=== PATIENT | male | born 1990 ===

== ENCOUNTER 2017-02-15 10:32 | Emergency (ER) | payer MEDICAID ==
[2017-02-15 10:51] VITALS: BP 115/70; TEMP 98.3
[2017-02-15 11:33] VITALS: PULSE 88; RESP 17; O2SAT 98
--- NOTE | 2017-02-15 15:17 | C.PDOC ---
History Of Present Illness The patient, a 26 y/o male whose PMHx includes Schizophrenia, presents to the ED for evaluation of diffuse body itching which began around 2 months ago. Patient states he has been taking Benadryl with little relief. Patient states he was evaluated by a doctor in [place] around 1.5 months ago for the same complaint and was prescribed Benadryl. Otherwise, patient denies fever, chills, shortness of breath, throat swelling sensation. Chief Complaint (Nursing): Abnormal Skin Integrity History Per: Patient History/Exam Limitations: no limitations Onset/Duration Of Symptoms: Other (around 2 months ) Current Symptoms Are (Timing): Still Present Quality Of Symptoms: Itching (diffuse ) Additional History Per: Patient Past Medical History Reviewed: Historical Data, Nursing Documentation, Vital Signs Vital Signs: Last Vital Signs Temp 98.3 F 02/15/17 10:48 Pulse 88 02/15/17 11:32 Resp 17 02/15/17 11:32 BP 115/70 02/15/17 10:48 Pulse Ox 98 02/15/17 15:21 - Medical History PMH: Schizophrenia Surgical History: Appendectomy Family History: States: No Known Family Hx - Social History Hx Alcohol Use: No Hx Substance Use: No - Immunization History Hx Tetanus Toxoid Vaccination: Yes Hx Influenza Vaccination: No Hx Pneumococcal Vaccination: No Review Of Systems Except As Marked, All Systems Reviewed And Found Negative. Constitutional: Negative for: Fever, Chills ENT: Negative for: Throat Swelling Respiratory: Negative for: Shortness of Breath Skin: Positive for: Other (diffuse, generalized body itching) Physical Exam - Physical Exam Appears: Non-toxic, No Acute Distress Skin: Normal Color, Warm, Dry Head: Atraumatic, Normacephalic Eye(s): bilateral: Normal Inspection, EOMI Oral Mucosa: Moist Neck: Normal ROM, Supple Chest: Symmetrical, No Deformity, No Tenderness Cardiovascular: Rhythm Regular, No Murmur Respiratory: Normal Breath Sounds, No Rales, No Rhonchi, No Wheezing Male Genital: Normal Inspection Extremity: Normal ROM, Capillary Refill (less than 2 seconds ) Neurological/Psych: Oriented x3, Normal Speech, Normal Cognition Gait: Steady ED Course And Treatment O2 Sat by Pulse Oximetry: 98 (on RA) Pulse Ox Interpretation: Normal Progress Note: Patient received Prednisone PO. Disposition - Disposition Referrals: [facility] [Outside] [facility] [Outside] Disposition: HOME/ ROUTINE Disposition Time: 11:25 Condition: GOOD Additional Instructions: Thank you for letting us take care of you today. Your provider was Dr. Nava. You were treated for dermatitis. The emergency medical care you received today was directed at your acute symptoms. If you were prescribed any medication, please fill it and take as directed. It may take several days for your symptoms to resolve. Return to the Emergency Department if your symptoms worsen, do not improve, or if you have any other problems. Please contact your doctor or call one of the physicians/clinics you have been referred to that are listed on the Patient Visit Information form that is included in your discharge packet. Bring any paperwork you were given at discharge with you along with any medications you are taking to your follow up visit. Our treatment cannot replace ongoing medical care by a primary care provider (PCP) outside of the emergency department. Thank you for allowing the [facility] team to be part of your care today. Follow up in the clinic for outpatient care and re-evaluation. Prescriptions: predniSONE [Prednisone] 40 mg PO DAILY #10 tab Instructions: Dermatitis (ED) - Clinical Impression Clinical Impression: Dermatitis - Scribe Statement The provider has reviewed the documentation as recorded by the Scribe (Tatyana Moreno) Provider Attestation: All medical record entries made by the Scribe were at my direction and personally dictated by me. I have reviewed the chart and agree that the record accurately reflects my personal performance of the history, physical exam, medical decision making, and the department course for this patient. I have also personally directed, reviewed, and agree with the discharge instructions and disposition.
== END 2017-02-15 11:35 | disposition home or self-care (01) ==
LOC: MERGE 10:32 → C.ER 10:32
DX: L30.9 Dermatitis, unspecified (principal)

== ENCOUNTER 2017-04-25 13:17 | Emergency (ER) | payer MEDICAID ==
[2017-04-25 15:04] LABS: BASO # 0.1 K/uL (0.0-0.2); EOS # 0.6 K/uL (0.0-0.7); EOS % 8.6 % (0.0-4.0); HEMATOCRIT 42.5 % (35.0-51.0); LYMPH # 1.8 K/uL (1.0-4.3); LYMPH % 23.5 % (20.0-40.0); MEAN CELL VOLUME 92.8 fL (80.0-94.0); MEAN CORPUSCULAR HEMOGLOBIN 30.5 pg (27.0-31.0); MEAN CORPUSCULAR HGB CONC 32.9 g/dL (33.0-37.0); MEAN PLATELET VOLUME 8.1 fL (7.2-11.7); MONO # 0.7 K/uL (0.0-0.8); MONO % 9.4 % (0.0-10.0); RED CELL DISTRIBUTION WIDTH 13.1 % (11.5-14.5); WHITE BLOOD COUNT 7.5 K/uL (4.8-10.8)
[2017-04-25 15:10] LABS: URINE BILIRUBIN NEGATIVE (NEGATIVE); URINE BLOOD NEGATIVE (NEGATIVE); URINE COLOR Straw (YELLOW); URINE GLUCOSE (UA) NORMAL (Normal); URINE KETONE NEGATIVE (NEGATIVE); URINE LEUKOCYTE ESTERASE NEG Leu/uL (Negative); URINE PROTEIN NEGATIVE (NEGATIVE); URINE UROBILINOGEN NORMAL mg/dL (0.2-1.0); WBC URINE < 1 /hpf (0-5)
[2017-04-25 15:15] LABS: CHLORIDE 100 mmol/L (98-107); SODIUM 136 mmol/L (132-148)
[2017-04-25 15:17] LABS: ALB/GLOB RATIO 1.1 (1.0-2.1); ALKALINE PHOSPHATASE 67 U/L (38-126); AST/SGOT 20 U/L (17-59); BILIRUBIN,TOTAL 0.4 mg/dL (0.2-1.3); BLOOD UREA NITROGEN 14 mg/dL (9-20); CARBON DIOXIDE 26 mmol/L (22-30); GFR AFRICAN-AMERICAN > 60; TOTAL PROTEIN 7.1 g/dL (6.3-8.3)
[2017-04-25 15:18] LABS: ALCOHOL SERUM < 10 mg/dl (0-10); ALT/SGPT 26 U/L (21-72); CALCIUM 8.6 mg/dl (8.6-10.4); GLUCOSE,RANDOM 89 mg/dL (75-110)
--- NOTE | 2017-04-25 16:06 | C.PDOC ---
History Of Present Illness The patient, a 26 y/o male whose PMHx includes Schizophrenia and Depression, presents to the ED for psychiatric evaluation. Patient states he arrived from the [place] around 3 months ago. Patient initially reported suicidal ideation. When further questioned, patient denies such ideation and admits that he simply wants a refill of his medication. He denies suicidal/homicidal ideation or plans at this time. Time Seen by Provider: 04/25/17 13:52 Chief Complaint (Nursing): Psychiatric Evaluation History Per: Patient History/Exam Limitations: no limitations Onset/Duration Of Symptoms: Days Current Symptoms Are (Timing): Still Present Suicide/Self Injury Attempted (Context): None Associated Symptoms: denies: Suicidal Thoughts, Suicidal Plan Involuntary Hold By: None Recent travel outside of the [place]: No Additional History Per: Patient Past Medical History Reviewed: Historical Data, Nursing Documentation, Vital Signs Vital Signs: Last Vital Signs Temp 97.8 F 04/25/17 17:18 Pulse 70 04/25/17 17:18 Resp 20 04/25/17 17:18 BP 101/72 04/25/17 17:18 Pulse Ox 100 04/25/17 18:33 - Medical History PMH: Depression, Schizophrenia Surgical History: Appendectomy Family History: States: Unknown Family Hx - Social History Hx Alcohol Use: No Hx Substance Use: No - Immunization History Hx Tetanus Toxoid Vaccination: Yes Hx Influenza Vaccination: No Hx Pneumococcal Vaccination: No Review Of Systems Constitutional: Positive for: Other (+requesting med refill ) Psych: Negative for: Suicidal ideation Physical Exam - Physical Exam Appears: Non-toxic, No Acute Distress Skin: Normal Color, Warm, Dry Head: Atraumatic Eye(s): bilateral: Normal Inspection Oral Mucosa: Moist Neck: Supple Chest: Symmetrical Cardiovascular: Rhythm Regular, No Murmur Respiratory: Normal Breath Sounds, No Rales, No Rhonchi, No Wheezing Extremity: Normal ROM Neurological/Psych: Oriented x3, Normal Speech, Normal Cognition Gait: Steady ED Course And Treatment - Laboratory Results Result Diagrams: 04/25/17 14:59 04/25/17 14:59 O2 Sat by Pulse Oximetry: 100 (on RA) Pulse Ox Interpretation: Normal Medical Decision Making Medical Decision Making: Plan: * labs * psych evaluation * reassess and disposition Progress: labs ordered and reviewed. Patient was evaluated by harvest worker field crop. Patient continues to deny suicidal/homicidal ideation and has been cleared by harvest worker field crop for discharge. On reassessment, patient is resting comfortably with apparent distress. Patient is stable for discharge and is advised to f/u with outpatient psych services and/or return to the ED if symptoms return. Disposition Counseled Patient/Family Regarding: Need For Followup (Patient was instructed that the psych medications cannot be prescribed from the ED and needs to be prescribed from a psychiatrist) - Disposition Referrals: [facility] [Outside] Disposition: HOME/ ROUTINE Disposition Time: 16:05 Condition: GOOD Additional Instructions: Follow up with outpatient psych services. Return if worsened. Instructions: Schizophrenia (ED) - Clinical Impression Clinical Impression: Schizophrenia - PA / PSYCHOLOGY TECHNICIAN / Resident Statement MD/DO has reviewed & agrees with the documentation as recorded. - Scribe Statement The provider has reviewed the documentation as recorded by the Scribe (Tatyana Moreno) All medical record entries made by the Scribe were at my direction and personally dictated by me. I have reviewed the chart and agree that the record accurately reflects my personal performance of the history, physical exam, medical decision making, and the department course for this patient. I have also personally directed, reviewed, and agree with the discharge instructions and disposition.
[2017-04-25 17:20] VITALS: BP 101/72; PULSE 70; RESP 20; TEMP 97.8
[2017-04-25 18:27] VITALS: O2SAT 100
== END 2017-04-25 17:19 | disposition home or self-care (01) ==
LOC: C.ER 13:17
DX: F20.9 Schizophrenia, unspecified (principal)